=== PATIENT | male | born 1935 | race Caucasian/White ===

== ENCOUNTER 2021-05-24 23:22 | Emergency (ER) | payer MEDICARE, MEDICAID ==
[2021-05-24 23:54] LABS: #Eosinphils 0.2 10x3/uL (0.0-0.5); #Monocytes 0.7 10x3/uL (0.0-1.1); #Neutrophils 4.1 10x3/uL (1.5-8.4); %Basophils 0.4 % (0.0-2.0); %Eosinophils 2.2 % (0.0-6.0); %Lymphocytes 33.9 % (18.0-47.0); %Monocytes 8.8 % (0.0-10.0); %Neutrophils 54.3 % (40.0-75.0); Hemoglobin 10.3 g/dL (13.5-17.5); Mean Corpuscular HGB CONC 31.4 g/dL (32.0-36.0); Mean Corpuscular Hemoglobin 31.7 pg (27.0-33.0); Mean Corpuscular Volume 100.9 fl (81.2-95.1); Mean Platelet Volume 9.3 fl (7.4-10.4); Platelet Count 295 10x3/uL (150-450); RBC Distribution Width 13.5 % (11.5-14.5); Red Blood Cell (RBC) Count 3.25 10x6/uL (4.32-5.72); White Blood Cell (WBC) Count 7.6 10x3/uL (3.5-10.5)
[2021-05-25 00:09] LABS: ALT (SGPT) 8 U/L (8-55); AST (SGOT) 13 U/L (5-34); Albumin 3.3 g/dL (3.4-4.8); Alkaline Phosphatase 28 U/L (40-110); Anion Gap 14 mmol/L (10-20); BUN (Urea Nitrogen) 25 mg/dL (8.4-25.7); Bilirubin, Total 0.2 mg/dL (0.2-1.2); CK (CPK) 72 U/L (30-200); Calc. Creatinine Clearance 0 mL/min (70-130); Calcium 9.4 mg/dL (7.8-10.44); Carbon Dioxide 21 mmol/L (23-31); Chloride 110 mmol/L (98-107); Glucose 70 mg/dL (83-110); Potassium 3.8 mmol/L (3.5-5.1); Protein, Total 6.3 g/dL (5.8-8.1); Sodium 141 mmol/L (136-145)
[2021-05-25 01:16] LABS: Bilirubin Neg (Negative); Blood, Urine 10 (Negative); Clarity Clear (Clear); Glucose, Urine (Dipstick) Normal (Negative); Ketone, Urine Negative (Negative); Leukocyte 100 (Negative); Nitrite Negative (Negative); Protein, Urine (Dipstick) 15 mg/dl (Neg-Trace); Urobilinogen Normal mg/dL (Less than 2); pH, Urine 6.5 (5.0-9.0)
[2021-05-25 01:35] LABS: Bacteria/HPF 3+ HPF (None Seen); RBC/HPF 0-3 HPF (0-3); Squamous Epithelial 0-3 HPF (0-3)
[2021-05-25] MEDS ORDERED: cefTRIAXone\\ROCEPHIN 1 GM VIAL ONE (01:50)
== END 2021-05-25 03:15 | disposition home or self-care (01) ==
LOC: CSHERS 23:22
DX: G30.9 Alzheimer's disease, unspecified (principal); F02.80 Dementia in other diseases classified elsewhere, unspecified severity, without behavioral disturbance, psychotic disturbance, mood disturbance, and anxiety; N39.0 Urinary tract infection, site not specified; K21.9 Gastro-esophageal reflux disease without esophagitis; D50.9 Iron deficiency anemia, unspecified; I10 Essential (primary) hypertension; E78.5 Hyperlipidemia, unspecified; I25.10 Atherosclerotic heart disease of native coronary artery without angina pectoris; E11.9 Type 2 diabetes mellitus without complications; E78.00 Pure hypercholesterolemia, unspecified; E55.9 Vitamin D deficiency, unspecified; G25.81 Restless legs syndrome; Z86.73 Personal history of transient ischemic attack (TIA), and cerebral infarction without residual deficits; Z95.5 Presence of coronary angioplasty implant and graft
CPT/HCPCS: 51701; 70450; 71045; 80053; 81003; 81015; 82550; 84484; 85025; 93005; 96365; J0696

== ENCOUNTER 2021-07-16 19:59 | Inpatient (IN) | payer MEDICARE, MEDICAID ==
[2021-07-16 20:40] LABS: #Eosinphils 0.1 10x3/uL (0.0-0.5); #Monocytes 0.6 10x3/uL (0.0-1.1); #Neutrophils 4.2 10x3/uL (1.5-8.4); %Basophils 0.4 % (0.0-2.0); %Eosinophils 1.4 % (0.0-6.0); %Lymphocytes 30.8 % (18.0-47.0); %Neutrophils 59.1 % (40.0-75.0); Mean Corpuscular HGB CONC 31.8 g/dL (32.0-36.0); Mean Corpuscular Hemoglobin 32.1 pg (27.0-33.0); Mean Corpuscular Volume 100.6 fl (81.2-95.1); Mean Platelet Volume 9.8 fl (7.4-10.4); Platelet Count 266 10x3/uL (150-450); RBC Distribution Width 14.2 % (11.5-14.5); Red Blood Cell (RBC) Count 3.12 10x6/uL (4.32-5.72); White Blood Cell (WBC) Count 7.1 10x3/uL (3.5-10.5)
[2021-07-16 20:48] LABS: ALT (SGPT) 10 U/L (8-55); AST (SGOT) 10 U/L (5-34); Albumin 3.4 g/dL (3.4-4.8); Alkaline Phosphatase 22 U/L (40-110); Anion Gap 15 mmol/L (10-20); BUN (Urea Nitrogen) 30 mg/dL (8.4-25.7); Bilirubin, Total 0.2 mg/dL (0.2-1.2); Calc. Creatinine Clearance 0 mL/min (70-130); Calcium 8.3 mg/dL (7.8-10.44); Carbon Dioxide 20 mmol/L (23-31); Chloride 110 mmol/L (98-107); Globulin 2.4 g/dL (2.4-3.5); Glucose 136 mg/dL (83-110); Magnesium 1.8 mg/dL (1.6-2.6); Potassium 4.4 mmol/L (3.5-5.1); Protein, Total 5.8 g/dL (5.8-8.1); Sodium 141 mmol/L (136-145)
[2021-07-16] MEDS ORDERED: Cefepime 2 GM VIAL ONE (21:19)
[2021-07-16] MEDS ORDERED: HumaLOG 300 UNITS/3 ML VIAL SC PRN (21:36)
[2021-07-16] MEDS ORDERED: Senokot S 8.6-50 MG TAB PO PRN (21:36)
[2021-07-16] MEDS ORDERED: Acetaminophen 325 MG TAB PO PRN (21:36)
[2021-07-16] MEDS ORDERED: Calcium Carbonate 500 MG ChewTAB PO PRN (21:36)
[2021-07-16] MEDS ORDERED: Guaifenesin DM 100-10/5 ML UDCUP PO PRN (21:36)
[2021-07-16] MEDS ORDERED: Dextrose 5% in Water 1,000 ML IV PRN (21:36)
[2021-07-16] MEDS ORDERED: Dextrose 50% Abboject 50 ML SYRINGE SLOW IVP PRN (21:36)
[2021-07-16 21:51] LABS: Bilirubin Neg (Negative); Blood, Urine 10 (Negative); Glucose, Urine (Dipstick) Normal (Negative); Ketone, Urine Negative (Negative); Leukocyte 500 (Negative); Nitrite Negative (Negative); Protein, Urine (Dipstick) 15 mg/dl (Neg-Trace); Specific Gravity, Urine 1.015 (1.002-1.036); Urobilinogen Normal mg/dL (Less than 2)
[2021-07-16 21:59] LABS: Clarity Clear (Clear)
[2021-07-16] MEDS ORDERED: Pharmacy to Dose ABX/VANCOMYCIN IVPB PRN (22:01)
[2021-07-16 22:04] LABS: RBC/HPF 0-3 HPF (0-3); Squamous Epithelial 0-3 HPF (0-3); WBC/HPF 21-50 HPF (0-3)
[2021-07-16 22:05] LABS: Bacteria/HPF Rare-Few HPF (None Seen)
[2021-07-16 22:35] LABS: SARS-CoV-2 NAA Rapid Test Not Detected (NotDetected)
[2021-07-16 23:11] LABS: Lactic Acid 2.6 mmol/L (0.5-2.2)
[2021-07-16 23:57] LABS: Lactic Acid 2.6 mmol/L (0.5-2.2)
[2021-07-16] MEDS ORDERED: Sodium Chloride 0.45% 500 ML IV SCH (23:59)
[2021-07-17 00:02] VITALS: BMI 24.3
[2021-07-17] MEDS ORDERED: Vancomycin HCl 750 MG in Sodium Chloride 0.9% 250 ML 250 ML IVPB SCH (00:15)
[2021-07-17 04:57] LABS: #Eosinphils 0.2 10x3/uL (0.0-0.5); #Monocytes 0.5 10x3/uL (0.0-1.1); #Neutrophils 4.1 10x3/uL (1.5-8.4); %Basophils 0.6 % (0.0-2.0); %Eosinophils 2.6 % (0.0-6.0); %Lymphocytes 29.8 % (18.0-47.0); %Monocytes 7.7 % (0.0-10.0); %Neutrophils 58.7 % (40.0-75.0); Mean Corpuscular HGB CONC 32.1 g/dL (32.0-36.0); Mean Corpuscular Hemoglobin 32.1 pg (27.0-33.0); Mean Platelet Volume 9.4 fl (7.4-10.4); Platelet Count 232 10x3/uL (150-450); RBC Distribution Width 14.1 % (11.5-14.5); Red Blood Cell (RBC) Count 3.12 10x6/uL (4.32-5.72); White Blood Cell (WBC) Count 6.9 10x3/uL (3.5-10.5)
[2021-07-17 05:08] LABS: Anion Gap 12 mmol/L (10-20); BUN (Urea Nitrogen) 23 mg/dL (8.4-25.7); Calc. Creatinine Clearance 60 mL/min (70-130); Calcium 8.3 mg/dL (7.8-10.44); Carbon Dioxide 22 mmol/L (23-31); Chloride 113 mmol/L (98-107); Glucose 117 mg/dL (83-110); Potassium 4.1 mmol/L (3.5-5.1); Sodium 143 mmol/L (136-145)
[2021-07-17] MEDS ORDERED: CRANBERRY FRUIT 450 MG PO SCH (09:00)
[2021-07-17] MEDS ORDERED: D MANNOSE 1 GM PO SCH (09:00)
[2021-07-17] MEDS: Polyethylene Glycol 3350 17 GM Packet PO SCH (10:44)
[2021-07-17] MEDS: Docusate 100 MG CAP PO SCH ×2 (10:45→21:15)
[2021-07-17] MEDS: Cefepime 1 GM in Sodium Chloride 0.9% 100 ML IVPB SCH ×2 (10:46→21:15)
[2021-07-17] MEDS: Aggrenox 200-25mg CAP PO SCH ×2 (10:46→21:14)
[2021-07-17] MEDS: Multivit, Therapeutic 1 TAB PO SCH (10:46)
[2021-07-17] MEDS: Citalopram 20 MG TAB PO SCH (10:46)
[2021-07-17] MEDS: Apixaban 2.5 MG TAB PO SCH ×2 (10:46→21:15)
[2021-07-17] MEDS: Donepezil HCl 5 MG TAB PO SCH (10:46)
[2021-07-17] MEDS: Ferrous Gluconate 324 MG TAB PO SCH (10:46)
[2021-07-17] MEDS: Lantus 1000 UNITS/10 ML VIAL SC SCH (17:59)
[2021-07-17] MEDS: Famotidine 20 MG TAB PO SCH (21:14)
[2021-07-17] MEDS: Atorvastatin Calcium 10 MG TAB PO SCH (21:15)
[2021-07-17] MEDS: Cyanocobalamin (Vitamin B-12) 1,000 MCG TAB PO SCH (21:15)
[2021-07-17] MEDS: Folic Acid 1 MG TAB PO SCH (21:15)
[2021-07-18] MEDS ORDERED: VANCOMYCIN 1.25 GM/250 ML BAG 1.25 GM in Premix Bag 1 BAG IVPB SCH (01:00)
[2021-07-18] MEDS: VANCOMYCIN 1.25 GM/250 ML BAG 1.25 GM in Premix Bag 1 BAG IVPB SCH (02:47)
[2021-07-18 08:18] LABS: Lactic Acid 1.4 mmol/L (0.5-2.2)
[2021-07-18 08:25] LABS: Anion Gap 15 mmol/L (10-20); BUN (Urea Nitrogen) 14 mg/dL (8.4-25.7); Calc. Creatinine Clearance 67 mL/min (70-130); Calcium 9.4 mg/dL (7.8-10.44); Carbon Dioxide 21 mmol/L (23-31); Chloride 107 mmol/L (98-107); Glucose 127 mg/dL (83-110); Potassium 4.4 mmol/L (3.5-5.1); Sodium 139 mmol/L (136-145)
[2021-07-18] MEDS ORDERED: Lorazepam 2 MG/ML VIAL SLOW IVP PRN (09:18)
[2021-07-18] MEDS ORDERED: Metoprolol Tartrate 50 MG TAB PO SCH (10:00)
[2021-07-18] MEDS: Docusate 100 MG CAP PO SCH ×2 (10:09→21:20)
[2021-07-18] MEDS: Aggrenox 200-25mg CAP PO SCH ×2 (10:09→21:20)
[2021-07-18] MEDS: Donepezil HCl 5 MG TAB PO SCH (10:09)
[2021-07-18] MEDS: Ferrous Gluconate 324 MG TAB PO SCH (10:09)
[2021-07-18] MEDS: Multivit, Therapeutic 1 TAB PO SCH (10:09)
[2021-07-18] MEDS: Citalopram 20 MG TAB PO SCH (10:09)
[2021-07-18] MEDS: Apixaban 2.5 MG TAB PO SCH ×2 (10:10→21:21)
[2021-07-18] MEDS: Cefepime 1 GM in Sodium Chloride 0.9% 100 ML IVPB SCH ×2 (10:10→21:19)
[2021-07-18] MEDS: Polyethylene Glycol 3350 17 GM Packet PO SCH (10:10)
[2021-07-18] MEDS ORDERED: traZODone HCl 50 MG TAB PO PRN (16:57)
[2021-07-18] MEDS: Lantus 1000 UNITS/10 ML VIAL SC SCH (17:18)
[2021-07-18] MEDS: Gabapentin 400 MG CAP PO SCH ×2 (18:23→21:21)
[2021-07-18] MEDS: Folic Acid 1 MG TAB PO SCH (21:19)
[2021-07-18] MEDS: Famotidine 20 MG TAB PO SCH (21:20)
[2021-07-18] MEDS: Atorvastatin Calcium 10 MG TAB PO SCH (21:20)
[2021-07-18] MEDS: Cyanocobalamin (Vitamin B-12) 1,000 MCG TAB PO SCH (21:21)
[2021-07-18] MEDS: Metoprolol Tartrate 50 MG TAB PO SCH (21:21)
[2021-07-19] MEDS: VANCOMYCIN 1.25 GM/250 ML BAG 1.25 GM in Premix Bag 1 BAG IVPB SCH (01:34)
[2021-07-19 02:02] LABS: Vancomycin, Trough 13.8 ug/mL
[2021-07-19] MEDS: Ferrous Gluconate 324 MG TAB PO SCH (09:42)
[2021-07-19] MEDS: Cefepime 1 GM in Sodium Chloride 0.9% 100 ML IVPB SCH (09:42)
[2021-07-19] MEDS: Gabapentin 400 MG CAP PO SCH (09:43)
[2021-07-19] MEDS: Donepezil HCl 5 MG TAB PO SCH (09:44)
[2021-07-19] MEDS: Apixaban 2.5 MG TAB PO SCH (09:44)
[2021-07-19] MEDS: Metoprolol Tartrate 50 MG TAB PO SCH (09:44)
[2021-07-19] MEDS: Multivit, Therapeutic 1 TAB PO SCH (09:44)
[2021-07-19] MEDS: Docusate 100 MG CAP PO SCH (09:44)
[2021-07-19] MEDS: Citalopram 20 MG TAB PO SCH (09:44)
[2021-07-19] MEDS: Polyethylene Glycol 3350 17 GM Packet PO SCH (09:44)
[2021-07-19] MEDS: Aggrenox 200-25mg CAP PO SCH (09:48)
[2021-07-19 10:51] VITALS: TEMP 98.3
[2021-07-19 13:26] VITALS: BP 105/57
== END 2021-07-19 13:15 | disposition home or self-care (01) | DRG 683 ==
LOC: CSHERS 19:59 → CSHTELE 21:36 → UNDOADMIN 23:35 → CSHTELE 23:35
PROVIDERS: ADMIT Student in an Organized Health Care Education/Training Program; ATTEND Internal Medicine
DX: N17.9 Acute kidney failure, unspecified (principal); E87.2 Acidosis; E86.0 Dehydration; Z86.73 Personal history of transient ischemic attack (TIA), and cerebral infarction without residual deficits; K21.9 Gastro-esophageal reflux disease without esophagitis; E78.5 Hyperlipidemia, unspecified; I25.10 Atherosclerotic heart disease of native coronary artery without angina pectoris; E86.1 Hypovolemia; Z88.5 Allergy status to narcotic agent; Z88.2 Allergy status to sulfonamides; Z88.8 Allergy status to other drugs, medicaments and biological substances; Z79.01 Long term (current) use of anticoagulants; Z79.84 Long term (current) use of oral hypoglycemic drugs; Z79.4 Long term (current) use of insulin; Z79.891 Long term (current) use of opiate analgesic; Z79.899 Other long term (current) drug therapy; Z95.1 Presence of aortocoronary bypass graft; F01.50 Vascular dementia, unspecified severity, without behavioral disturbance, psychotic disturbance, mood disturbance, and anxiety; F41.9 Anxiety disorder, unspecified; Z87.891 Personal history of nicotine dependence; E11.22 Type 2 diabetes mellitus with diabetic chronic kidney disease; I12.9 Hypertensive chronic kidney disease with stage 1 through stage 4 chronic kidney disease, or unspecified chronic kidney disease; N18.2 Chronic kidney disease, stage 2 (mild); E11.65 Type 2 diabetes mellitus with hyperglycemia; D53.9 Nutritional anemia, unspecified; I95.9 Hypotension, unspecified
CPT/HCPCS: 36415; 36416; 51701; 71045; 71250; 80048; 80053; 80202; 81003; 81015; 83605; 83735; 83880; 84443; 84484; 85025; 87040; 93005; 94760; 96374; 96375; J0692; J2060; J3370; J3490; J7050; U0002

== ENCOUNTER 2021-08-03 08:50 | Inpatient (IN) | payer MEDICARE, MEDICAID ==
[2021-08-03 09:21] LABS: #Eosinphils 0.1 10x3/uL (0.0-0.5); #Monocytes 0.5 10x3/uL (0.0-1.1); #Neutrophils 6.1 10x3/uL (1.5-8.4); %Basophils 0.2 % (0.0-2.0); %Eosinophils 0.9 % (0.0-6.0); %Lymphocytes 21.3 % (18.0-47.0); %Monocytes 6.3 % (0.0-10.0); %Neutrophils 70.7 % (40.0-75.0); Hemoglobin 9.9 g/dL (13.5-17.5); Mean Corpuscular Hemoglobin 31.6 pg (27.0-33.0); Mean Corpuscular Volume 101.9 fl (81.2-95.1); Mean Platelet Volume 9.5 fl (7.4-10.4); Platelet Count 292 10x3/uL (150-450); RBC Distribution Width 14.1 % (11.5-14.5); Red Blood Cell (RBC) Count 3.13 10x6/uL (4.32-5.72); White Blood Cell (WBC) Count 8.6 10x3/uL (3.5-10.5)
[2021-08-03 09:40] LABS: ALT (SGPT) 12 U/L (8-55); AST (SGOT) 18 U/L (5-34); Albumin 3.1 g/dL (3.4-4.8); Alkaline Phosphatase 25 U/L (40-110); Anion Gap 13 mmol/L (10-20); BUN (Urea Nitrogen) 21 mg/dL (8.4-25.7); Bilirubin, Total 0.4 mg/dL (0.2-1.2); CK (CPK) 398 U/L (30-200); Calc. Creatinine Clearance 0 mL/min (70-130); Calcium 8.2 mg/dL (7.8-10.44); Carbon Dioxide 22 mmol/L (23-31); Chloride 114 mmol/L (98-107); Globulin 2.5 g/dL (2.4-3.5); Glucose 104 mg/dL (83-110); Potassium 4.3 mmol/L (3.5-5.1); Protein, Total 5.6 g/dL (5.8-8.1); Sodium 145 mmol/L (136-145)
[2021-08-03 09:58] LABS: CKMB 1.4 ng/mL (0-6.6)
[2021-08-03 10:07] LABS: Bilirubin Neg (Negative); Blood, Urine 10 (Negative); Clarity Clear (Clear); Glucose, Urine (Dipstick) Normal (Negative); Ketone, Urine Negative (Negative); Leukocyte 25 (Negative); Nitrite Negative (Negative); Protein, Urine (Dipstick) 30 mg/dl (Neg-Trace)
[2021-08-03] MEDS ORDERED: Aspirin Chewable 81 MG TAB ONE (10:25)
[2021-08-03 10:37] LABS: Bacteria/HPF Rare-Few HPF (None Seen); RBC/HPF 0-3 HPF (0-3); Squamous Epithelial 0-3 HPF (0-3); WBC/HPF 0-3 HPF (0-3)
[2021-08-03] MEDS ORDERED: Senokot S 8.6-50 MG TAB PO PRN (11:35)
[2021-08-03] MEDS ORDERED: Acetaminophen 650 MG Suppository PR PRN (11:35)
[2021-08-03] MEDS ORDERED: Bisacodyl 5 MG TAB PO PRN (11:35)
[2021-08-03] MEDS ORDERED: Acetaminophen 325 MG TAB PO PRN (11:35)
[2021-08-03] MEDS ORDERED: Guaifenesin DM 100-10/5 ML UDCUP PO PRN (11:35)
[2021-08-03] MEDS ORDERED: Sodium Chloride 0.9% 500 ML IV SCH (13:45)
[2021-08-03 14:42] LABS: Troponin I 0.024 ng/mL (< 0.028)
[2021-08-03 16:03] LABS: Troponin I 0.023 ng/mL (< 0.028)
[2021-08-03 18:43] VITALS: BMI 23.7
[2021-08-04 06:46] LABS: #Monocytes 0.3 10x3/uL (0.0-1.1); #Neutrophils 3.6 10x3/uL (1.5-8.4); %Basophils 0.4 % (0.0-2.0); %Eosinophils 0.8 % (0.0-6.0); %Lymphocytes 25.4 % (18.0-47.0); %Monocytes 5.6 % (0.0-10.0); %Neutrophils 67.6 % (40.0-75.0); Hemoglobin 9.6 g/dL (13.5-17.5); Mean Corpuscular HGB CONC 31.5 g/dL (32.0-36.0); Mean Corpuscular Hemoglobin 31.9 pg (27.0-33.0); Mean Corpuscular Volume 101.3 fl (81.2-95.1); Mean Platelet Volume 9.6 fl (7.4-10.4); Platelet Count 281 10x3/uL (150-450); RBC Distribution Width 13.4 % (11.5-14.5); Red Blood Cell (RBC) Count 3.01 10x6/uL (4.32-5.72); White Blood Cell (WBC) Count 5.3 10x3/uL (3.5-10.5)
[2021-08-04 06:54] LABS: Anion Gap 15 mmol/L (10-20); BUN (Urea Nitrogen) 19 mg/dL (8.4-25.7); Calc. Creatinine Clearance 73 mL/min (70-130); Calcium 8.5 mg/dL (7.8-10.44); Carbon Dioxide 20 mmol/L (23-31); Chloride 114 mmol/L (98-107); Glucose 76 mg/dL (83-110); Potassium 3.8 mmol/L (3.5-5.1); Sodium 145 mmol/L (136-145)
[2021-08-04] MEDS ORDERED: Metoprolol Tartrate 5 MG/5 ML VIAL IVP PRN (11:43)
[2021-08-04] MEDS ORDERED: Dextrose 50% Abboject 50 ML SYRINGE SLOW IVP PRN (12:03)
[2021-08-04] MEDS ORDERED: Dextrose 5% in Water 1,000 ML IV PRN (12:03)
[2021-08-04] MEDS: Lantus 1000 UNITS/10 ML VIAL SC SCH (16:29)
[2021-08-04] MEDS ORDERED: Famotidine 20 MG TAB PO SCH (21:00)
[2021-08-04] MEDS: Metoprolol Tartrate 50 MG TAB PO SCH (21:58)
[2021-08-04] MEDS: Melatonin 3 MG TAB PO SCH (21:58)
[2021-08-04] MEDS: Saccharomyces boulardii 250 MG CAP PO SCH (21:58)
[2021-08-04] MEDS: Aggrenox 200-25mg CAP PO SCH (21:58)
[2021-08-04] MEDS: Donepezil HCl 5 MG TAB PO SCH (21:58)
[2021-08-04] MEDS: Apixaban 2.5 MG TAB PO SCH (21:58)
[2021-08-04] MEDS: Cyanocobalamin (Vitamin B-12) 1,000 MCG TAB PO SCH (21:58)
[2021-08-04] MEDS: Folic Acid 1 MG TAB PO SCH (21:58)
[2021-08-04] MEDS: Atorvastatin Calcium 10 MG TAB PO SCH (21:58)
[2021-08-05 04:33] LABS: #Monocytes 0.4 10x3/uL (0.0-1.1); %Basophils 0.4 % (0.0-2.0); %Eosinophils 0.5 % (0.0-6.0); %Lymphocytes 17.3 % (18.0-47.0); %Monocytes 5.1 % (0.0-10.0); %Neutrophils 76.4 % (40.0-75.0); Hemoglobin 9.8 g/dL (13.5-17.5); Mean Corpuscular HGB CONC 32.1 g/dL (32.0-36.0); Mean Corpuscular Hemoglobin 31.7 pg (27.0-33.0); Mean Corpuscular Volume 98.7 fl (81.2-95.1); Mean Platelet Volume 9.6 fl (7.4-10.4); Platelet Count 302 10x3/uL (150-450); RBC Distribution Width 13.3 % (11.5-14.5); Red Blood Cell (RBC) Count 3.09 10x6/uL (4.32-5.72); White Blood Cell (WBC) Count 7.9 10x3/uL (3.5-10.5)
[2021-08-05 04:52] LABS: ALT (SGPT) 14 U/L (8-55); AST (SGOT) 23 U/L (5-34); Albumin 3.2 g/dL (3.4-4.8); Alkaline Phosphatase 28 U/L (40-110); Anion Gap 14 mmol/L (10-20); BUN (Urea Nitrogen) 15 mg/dL (8.4-25.7); Bilirubin, Total 0.5 mg/dL (0.2-1.2); Calc. Creatinine Clearance 73 mL/min (70-130); Calcium 8.7 mg/dL (7.8-10.44); Carbon Dioxide 20 mmol/L (23-31); Chloride 113 mmol/L (98-107); Globulin 2.6 g/dL (2.4-3.5); Glucose 116 mg/dL (83-110); Potassium 3.9 mmol/L (3.5-5.1); Protein, Total 5.8 g/dL (5.8-8.1); Sodium 143 mmol/L (136-145)
[2021-08-05] MEDS: Aggrenox 200-25mg CAP PO SCH ×2 (09:09→20:18)
[2021-08-05] MEDS: Polyethylene Glycol 3350 17 GM Packet PO SCH (09:09)
[2021-08-05] MEDS: Ferrous Gluconate 324 MG TAB PO SCH (09:09)
[2021-08-05] MEDS: Citalopram 20 MG TAB PO SCH (09:10)
[2021-08-05] MEDS: Apixaban 2.5 MG TAB PO SCH ×2 (09:10→20:08)
[2021-08-05] MEDS: Saccharomyces boulardii 250 MG CAP PO SCH ×2 (09:10→20:18)
[2021-08-05] MEDS: Multivit, Therapeutic 1 TAB PO SCH (09:10)
[2021-08-05] MEDS: Metoprolol Tartrate 50 MG TAB PO SCH ×2 (09:10→20:09)
[2021-08-05] MEDS: HumaLOG 300 UNITS/3 ML VIAL SC PRN ×2 (12:11→20:28)
[2021-08-05] MEDS ORDERED: Lorazepam 0.5 MG TAB PO SCH (14:00)
[2021-08-05] MEDS: Lantus 1000 UNITS/10 ML VIAL SC SCH (17:47)
[2021-08-05] MEDS: Donepezil HCl 5 MG TAB PO SCH (20:08)
[2021-08-05] MEDS: Melatonin 3 MG TAB PO SCH (20:09)
[2021-08-05] MEDS: Cyanocobalamin (Vitamin B-12) 1,000 MCG TAB PO SCH (20:18)
[2021-08-05] MEDS: Atorvastatin Calcium 10 MG TAB PO SCH (20:18)
[2021-08-05] MEDS: Folic Acid 1 MG TAB PO SCH (20:18)
[2021-08-05] MEDS: Famotidine 20 MG TAB PO SCH (20:18)
[2021-08-05] MEDS ORDERED: Lorazepam 2 MG/ML VIAL SLOW IVP PRN (22:00)
[2021-08-06 06:21] LABS: #Monocytes 0.7 10x3/uL (0.0-1.1); %Basophils 0.2 % (0.0-2.0); %Eosinophils 0.2 % (0.0-6.0); %Lymphocytes 14.6 % (18.0-47.0); %Monocytes 7.1 % (0.0-10.0); %Neutrophils 77.5 % (40.0-75.0); Hemoglobin 10.6 g/dL (13.5-17.5); Mean Corpuscular HGB CONC 32.1 g/dL (32.0-36.0); Mean Corpuscular Volume 99.7 fl (81.2-95.1); Mean Platelet Volume 10.1 fl (7.4-10.4); Platelet Count 284 10x3/uL (150-450); RBC Distribution Width 13.1 % (11.5-14.5); Red Blood Cell (RBC) Count 3.31 10x6/uL (4.32-5.72); White Blood Cell (WBC) Count 10.3 10x3/uL (3.5-10.5)
[2021-08-06 06:49] LABS: ALT (SGPT) 14 U/L (8-55); AST (SGOT) 25 U/L (5-34); Albumin 3.5 g/dL (3.4-4.8); Alkaline Phosphatase 31 U/L (40-110); Anion Gap 15 mmol/L (10-20); BUN (Urea Nitrogen) 13 mg/dL (8.4-25.7); Bilirubin, Total 0.8 mg/dL (0.2-1.2); Calc. Creatinine Clearance 70 mL/min (70-130); Calcium 9.2 mg/dL (7.8-10.44); Carbon Dioxide 21 mmol/L (23-31); Chloride 112 mmol/L (98-107); Globulin 3.5 g/dL (2.4-3.5); Potassium 3.9 mmol/L (3.5-5.1); Sodium 144 mmol/L (136-145)
[2021-08-06 06:53] LABS: Glucose 59 mg/dL (83-110)
[2021-08-06] MEDS: Apixaban 2.5 MG TAB PO SCH ×2 (09:31→21:34)
[2021-08-06] MEDS: Metoprolol Tartrate 50 MG TAB PO SCH ×2 (09:31→21:34)
[2021-08-06] MEDS: Saccharomyces boulardii 250 MG CAP PO SCH ×2 (09:31→21:34)
[2021-08-06] MEDS: Citalopram 20 MG TAB PO SCH (09:31)
[2021-08-06] MEDS: Ferrous Gluconate 324 MG TAB PO SCH (09:31)
[2021-08-06] MEDS: Famotidine 20 MG TAB PO SCH ×2 (09:31→20:56)
[2021-08-06] MEDS: Multivit, Therapeutic 1 TAB PO SCH (09:32)
[2021-08-06] MEDS: Aggrenox 200-25mg CAP PO SCH ×2 (09:32→21:34)
[2021-08-06] MEDS: Polyethylene Glycol 3350 17 GM Packet PO SCH (09:32)
[2021-08-06] MEDS: Lantus 1000 UNITS/10 ML VIAL SC SCH (18:00)
[2021-08-06] MEDS ORDERED: Lantus 1000 UNITS/10 ML VIAL SC SCH (21:00)
[2021-08-06] MEDS: Atorvastatin Calcium 10 MG TAB PO SCH (21:33)
[2021-08-06] MEDS: Folic Acid 1 MG TAB PO SCH (21:33)
[2021-08-06] MEDS: Donepezil HCl 5 MG TAB PO SCH (21:33)
[2021-08-06] MEDS: Cyanocobalamin (Vitamin B-12) 1,000 MCG TAB PO SCH (21:34)
[2021-08-06] MEDS: Melatonin 3 MG TAB PO SCH (21:34)
[2021-08-07 07:06] LABS: #Monocytes 0.6 10x3/uL (0.0-1.1); #Neutrophils 5.9 10x3/uL (1.5-8.4); %Basophils 0.4 % (0.0-2.0); %Eosinophils 0.4 % (0.0-6.0); %Lymphocytes 16.9 % (18.0-47.0); %Monocytes 7.2 % (0.0-10.0); %Neutrophils 74.6 % (40.0-75.0); Hemoglobin 9.9 g/dL (13.5-17.5); Mean Corpuscular Hemoglobin 31.6 pg (27.0-33.0); Mean Corpuscular Volume 98.7 fl (81.2-95.1); Mean Platelet Volume 9.7 fl (7.4-10.4); Platelet Count 343 10x3/uL (150-450); RBC Distribution Width 13.4 % (11.5-14.5); Red Blood Cell (RBC) Count 3.13 10x6/uL (4.32-5.72)
[2021-08-07 07:27] LABS: ALT (SGPT) 14 U/L (8-55); AST (SGOT) 18 U/L (5-34); Albumin 3.2 g/dL (3.4-4.8); Alkaline Phosphatase 26 U/L (40-110); Anion Gap 14 mmol/L (10-20); BUN (Urea Nitrogen) 13 mg/dL (8.4-25.7); Bilirubin, Total 0.7 mg/dL (0.2-1.2); Calc. Creatinine Clearance 72 mL/min (70-130); Calcium 8.7 mg/dL (7.8-10.44); Carbon Dioxide 21 mmol/L (23-31); Chloride 111 mmol/L (98-107); Globulin 3.4 g/dL (2.4-3.5); Glucose 60 mg/dL (83-110); Potassium 3.5 mmol/L (3.5-5.1); Protein, Total 6.6 g/dL (5.8-8.1); Sodium 142 mmol/L (136-145)
[2021-08-07] MEDS: Famotidine 20 MG TAB PO SCH ×2 (10:14→20:48)
[2021-08-07] MEDS: Multivit, Therapeutic 1 TAB PO SCH (10:14)
[2021-08-07] MEDS: Apixaban 2.5 MG TAB PO SCH ×2 (10:14→20:49)
[2021-08-07] MEDS: Metoprolol Tartrate 50 MG TAB PO SCH ×2 (10:14→20:49)
[2021-08-07] MEDS: Ferrous Gluconate 324 MG TAB PO SCH (10:14)
[2021-08-07] MEDS: Polyethylene Glycol 3350 17 GM Packet PO SCH (10:15)
[2021-08-07] MEDS: Citalopram 20 MG TAB PO SCH (10:15)
[2021-08-07] MEDS: Saccharomyces boulardii 250 MG CAP PO SCH ×2 (10:15→20:57)
[2021-08-07] MEDS: Aggrenox 200-25mg CAP PO SCH ×2 (10:16→20:50)
[2021-08-07] MEDS ORDERED: Potassium Chloride 20 MEQ TAB PO SCH (11:00)
[2021-08-07] MEDS ORDERED: hydrALAZINE 10 MG TAB PO PRN (18:16)
[2021-08-07] MEDS: Donepezil HCl 5 MG TAB PO SCH (20:48)
[2021-08-07] MEDS: Melatonin 3 MG TAB PO SCH (20:48)
[2021-08-07] MEDS: Cyanocobalamin (Vitamin B-12) 1,000 MCG TAB PO SCH (20:49)
[2021-08-07] MEDS: Folic Acid 1 MG TAB PO SCH (20:49)
[2021-08-07] MEDS: Atorvastatin Calcium 10 MG TAB PO SCH (20:49)
[2021-08-08 04:41] LABS: ALT (SGPT) 15 U/L (8-55); AST (SGOT) 16 U/L (5-34); Albumin 3.2 g/dL (3.4-4.8); Alkaline Phosphatase 26 U/L (40-110); Anion Gap 12 mmol/L (10-20); BUN (Urea Nitrogen) 14 mg/dL (8.4-25.7); Bilirubin, Total 0.6 mg/dL (0.2-1.2); Calc. Creatinine Clearance 69 mL/min (70-130); Calcium 8.8 mg/dL (7.8-10.44); Carbon Dioxide 21 mmol/L (23-31); Chloride 112 mmol/L (98-107); Globulin 3.4 g/dL (2.4-3.5); Glucose 110 mg/dL (83-110); Potassium 3.7 mmol/L (3.5-5.1); Protein, Total 6.6 g/dL (5.8-8.1); Sodium 141 mmol/L (136-145)
[2021-08-08 04:55] LABS: #Monocytes 0.4 10x3/uL (0.0-1.1); #Neutrophils 4.1 10x3/uL (1.5-8.4); %Basophils 0.7 % (0.0-2.0); %Eosinophils 0.7 % (0.0-6.0); %Lymphocytes 19.1 % (18.0-47.0); %Monocytes 7.2 % (0.0-10.0); %Neutrophils 71.8 % (40.0-75.0); Hemoglobin 10.1 g/dL (13.5-17.5); Mean Corpuscular HGB CONC 32.2 g/dL (32.0-36.0); Mean Corpuscular Hemoglobin 31.6 pg (27.0-33.0); Mean Corpuscular Volume 98.1 fl (81.2-95.1); Mean Platelet Volume 10.1 fl (7.4-10.4); Platelet Count 382 10x3/uL (150-450); RBC Distribution Width 13.2 % (11.5-14.5); White Blood Cell (WBC) Count 5.7 10x3/uL (3.5-10.5)
[2021-08-08 06:11] VITALS: TEMP 97.7
[2021-08-08] MEDS ORDERED: Potassium Chloride 20 MEQ TAB PO SCH (09:00)
[2021-08-08] MEDS: Metoprolol Tartrate 50 MG TAB PO SCH (10:02)
[2021-08-08] MEDS: Saccharomyces boulardii 250 MG CAP PO SCH (10:02)
[2021-08-08] MEDS: Ferrous Gluconate 324 MG TAB PO SCH (10:03)
[2021-08-08] MEDS: Polyethylene Glycol 3350 17 GM Packet PO SCH (10:03)
[2021-08-08] MEDS: Citalopram 20 MG TAB PO SCH (10:03)
[2021-08-08] MEDS: Apixaban 2.5 MG TAB PO SCH (10:03)
[2021-08-08] MEDS: Famotidine 20 MG TAB PO SCH (10:03)
[2021-08-08] MEDS: Multivit, Therapeutic 1 TAB PO SCH (10:03)
[2021-08-08] MEDS: Aggrenox 200-25mg CAP PO SCH (10:09)
[2021-08-08 14:10] VITALS: BP 164/78
== END 2021-08-08 14:30 | DRG 312 ==
LOC: CSHERS 08:50 → CSHTELE 13:28 → OBSVTOIN 08-05 20:47
PROVIDERS: ADMIT Internal Medicine; ATTEND Internal Medicine
DX: I95.2 Hypotension due to drugs (principal); G93.41 Metabolic encephalopathy; J98.11 Atelectasis; I50.42 Chronic combined systolic (congestive) and diastolic (congestive) heart failure; I48.92 Unspecified atrial flutter; I13.0 Hypertensive heart and chronic kidney disease with heart failure and stage 1 through stage 4 chronic kidney disease, or unspecified chronic kidney disease; E78.5 Hyperlipidemia, unspecified; G25.81 Restless legs syndrome; G30.9 Alzheimer's disease, unspecified; F02.80 Dementia in other diseases classified elsewhere, unspecified severity, without behavioral disturbance, psychotic disturbance, mood disturbance, and anxiety; R13.10 Dysphagia, unspecified; E11.42 Type 2 diabetes mellitus with diabetic polyneuropathy; E11.59 Type 2 diabetes mellitus with other circulatory complications; I25.118 Atherosclerotic heart disease of native coronary artery with other forms of angina pectoris; E78.00 Pure hypercholesterolemia, unspecified; F32.A Depression, unspecified; F41.9 Anxiety disorder, unspecified; E11.51 Type 2 diabetes mellitus with diabetic peripheral angiopathy without gangrene; I70.219 Atherosclerosis of native arteries of extremities with intermittent claudication, unspecified extremity; I48.0 Paroxysmal atrial fibrillation; E11.649 Type 2 diabetes mellitus with hypoglycemia without coma; T50.905A Adverse effect of unspecified drugs, medicaments and biological substances, initial encounter; K21.9 Gastro-esophageal reflux disease without esophagitis; N18.2 Chronic kidney disease, stage 2 (mild); E11.22 Type 2 diabetes mellitus with diabetic chronic kidney disease; Z95.5 Presence of coronary angioplasty implant and graft; Z79.01 Long term (current) use of anticoagulants; Z88.8 Allergy status to other drugs, medicaments and biological substances; Z79.899 Other long term (current) drug therapy; Z79.4 Long term (current) use of insulin; Z79.82 Long term (current) use of aspirin; Z88.2 Allergy status to sulfonamides; I25.2 Old myocardial infarction; Z90.49 Acquired absence of other specified parts of digestive tract; Z95.1 Presence of aortocoronary bypass graft; Z86.73 Personal history of transient ischemic attack (TIA), and cerebral infarction without residual deficits
CPT/HCPCS: 36415; 36416; 51701; 70450; 71045; 74230; 80048; 80053; 81003; 81015; 82550; 82553; 83036; 83605; 84484; 85025; 87040; 87086; 93005; 93010; 93306; 94760; G0378; J1815; J7030

== ENCOUNTER 2021-11-07 19:08 | Observation (INO) | payer MEDICARE, MEDICAID ==
[2021-11-07 19:42] LABS: #Eosinphils 0.1 10x3/uL (0.0-0.5); #Monocytes 0.3 10x3/uL (0.0-1.1); #Neutrophils 3.1 10x3/uL (1.5-8.4); %Basophils 0.4 % (0.0-2.0); %Eosinophils 1.3 % (0.0-6.0); %Lymphocytes 33.8 % (18.0-47.0); %Monocytes 6.2 % (0.0-10.0); %Neutrophils 57.4 % (40.0-75.0); Hemoglobin 10.3 g/dL (13.5-17.5); Mean Corpuscular HGB CONC 31.5 g/dL (32.0-36.0); Mean Corpuscular Hemoglobin 32.2 pg (27.0-33.0); Mean Corpuscular Volume 102.2 fl (81.2-95.1); Platelet Count 278 10x3/uL (150-450); RBC Distribution Width 15.3 % (11.5-14.5); White Blood Cell (WBC) Count 5.5 10x3/uL (3.5-10.5)
[2021-11-07 19:54] LABS: ALT (SGPT) 11 U/L (8-55); AST (SGOT) 11 U/L (5-34); Albumin 3.3 g/dL (3.4-4.8); Alkaline Phosphatase 24 U/L (40-110); Anion Gap 13 mmol/L (10-20); BUN (Urea Nitrogen) 19 mg/dL (8.4-25.7); Bilirubin, Total 0.3 mg/dL (0.2-1.2); Calc. Creatinine Clearance 0 mL/min (70-130); Calcium 8.4 mg/dL (7.8-10.44); Carbon Dioxide 22 mmol/L (23-31); Chloride 106 mmol/L (98-107); Globulin 2.4 g/dL (2.4-3.5); Glucose 120 mg/dL (83-110); Magnesium 1.9 mg/dL (1.6-2.6); Potassium 4.3 mmol/L (3.5-5.1); Protein, Total 5.7 g/dL (5.8-8.1); Sodium 137 mmol/L (136-145)
[2021-11-07 20:23] LABS: SARS-CoV-2 NAA Rapid Test DETECTED (NotDetected)
[2021-11-07] MEDS ORDERED: Vancomycin HCl 500 MG VIAL ONE (20:54)
[2021-11-07] MEDS ORDERED: cefTRIAXone\\ROCEPHIN 2 GM VIAL ONE (20:54)
[2021-11-07 22:35] LABS: Lactic Acid 2.6 mmol/L (0.5-2.2)
[2021-11-07 22:35] LABS: Bilirubin Neg (Negative); Blood, Urine Negative (Negative); Clarity Clear (Clear); Glucose, Urine (Dipstick) Normal (Negative); Ketone, Urine Negative (Negative); Leukocyte 100 (Negative); Nitrite Negative (Negative); Protein, Urine (Dipstick) Negative (Neg-Trace); Urobilinogen Normal mg/dL (Less than 2); pH, Urine 6.5 (5.0-9.0)
[2021-11-07 22:44] LABS: Bacteria/HPF 2+ HPF (None Seen); Mucous/LPF 1+ LPF (<2+); RBC/HPF None Seen HPF (0-3); Squamous Epithelial 0-3 HPF (0-3)
[2021-11-08 00:32] VITALS: BMI 24.0
[2021-11-08] MEDS ORDERED: Sodium Chloride 0.9% 1,000 ML IV SCH (00:45)
[2021-11-08] MEDS ORDERED: Polyethylene Glycol 3350 17 GM Packet PO PRN (06:03)
[2021-11-08] MEDS ORDERED: HumaLOG 300 UNITS/3 ML VIAL SC PRN (06:07)
[2021-11-08] MEDS ORDERED: Dextrose 50% Abboject 50 ML SYRINGE SLOW IVP PRN (06:07)
[2021-11-08] MEDS ORDERED: Dextrose 5% in Water 1,000 ML IV PRN (06:07)
[2021-11-08] MEDS ORDERED: Metoprolol Tartrate 50 MG TAB PO SCH (09:00)
[2021-11-08] MEDS ORDERED: Ferrous Gluconate 324 MG TAB PO SCH (09:00)
[2021-11-08] MEDS ORDERED: Aggrenox 200-25mg CAP PO SCH (09:00)
[2021-11-08] MEDS ORDERED: Saccharomyces boulardii 250 MG CAP PO SCH (09:00)
[2021-11-08] MEDS ORDERED: Docusate 100 MG CAP PO SCH (09:00)
[2021-11-08] MEDS ORDERED: Apixaban 2.5 MG TAB PO SCH (09:00)
[2021-11-08] MEDS ORDERED: Multivit, Therapeutic 1 TAB PO SCH (09:00)
[2021-11-08 17:54] VITALS: BP 117/73; TEMP 97.5
[2021-11-08] MEDS ORDERED: Melatonin 3 MG TAB PO SCH (21:00)
[2021-11-08] MEDS ORDERED: Atorvastatin Calcium 10 MG TAB PO SCH (21:00)
[2021-11-08] MEDS ORDERED: Donepezil HCl 5 MG TAB PO SCH (21:00)
== END 2021-11-08 18:04 ==
LOC: CSHERS 19:08 → INTOOBSV 23:42 → CSHTELE 23:42 → UNDOADMOB 23:42 → CSHTELE 11-08 00:33
PROVIDERS: ADMIT Family Medicine; ATTEND Hospitalist
DX: I48.91 Unspecified atrial fibrillation (principal); U07.1 COVID-19; I25.10 Atherosclerotic heart disease of native coronary artery without angina pectoris; I11.0 Hypertensive heart disease with heart failure; I50.20 Unspecified systolic (congestive) heart failure; F03.91 Unspecified dementia, unspecified severity, with behavioral disturbance; E11.9 Type 2 diabetes mellitus without complications; Z79.01 Long term (current) use of anticoagulants; Z79.899 Other long term (current) drug therapy; Z79.4 Long term (current) use of insulin; Z86.19 Personal history of other infectious and parasitic diseases; Z79.82 Long term (current) use of aspirin; Z95.5 Presence of coronary angioplasty implant and graft; Z95.1 Presence of aortocoronary bypass graft
CPT/HCPCS: 71045; 80053; 82962 ×2; 83605; 83690; 83735; 83880; 84484; 85025; 87040; 87077; 87086; 87186; 93005; 96365; 96367; 99285; U0002; 36415; 36416; 81003; 81015; G0378; J0696; J1815; J3370; J7050